=== PATIENT | male | born 1970 | race Caucasian/White ===

== ENCOUNTER 2019-03-31 07:12 | Outpatient (CLI) | payer BC, SELFPAY ==
[2019-03-31 07:36] LABS: Basophils Absolute Auto 0.1 K/mm3 (0.0-0.1); Basophils Percent Auto 1.3 % (0.2-1.2); Eosinophils Absolute Auto 0.2 K/mm3 (0-0.3); Eosinophils Percent Auto 2.2 % (0-4.4); Hematocrit 46.7 % (42.0-52.0); Hemoglobin 15.6 g/dL (14.0-18.0); Immature Granulocyte Absolute 0.34 K/mm3 (0.00-0.031); Immature Granulocyte Percent A 3.7 % (0-0.5); Lymphocytes Absolute Auto 2.48 K/mm3 (0.9-3.2); Lymphocytes Percent Auto 27.3 % (18.3-44.2); Mean Corpuscular HGB Conc 33.4 g/dl (32-36); Mean Corpuscular Hemoglobin 29.9 pg (26-34); Mean Corpuscular Volume 89.5 fl (80-100); Mean Platelet Volume 10.3 fl (7.4-10.4); Monocytes Absolute Auto 0.8 K/mm3 (0.1-0.6); Monocytes Percent Auto 8.7 % (2.6-8.5); Neutrophils Absolute Auto 5.2 K/mm3 (1.3-6.7); Neutrophils Percent Auto 56.8 % (45.5-73.1); Platelet Count Result 259 k/mm3 (150-375); Red Blood Count 5.22 M/mm3 (4.6-6.20); Red Cell Distribution Width 12.3 % (11.5-14.5); White Blood Count 9.1 K/mm3 (4.5-10.0)
[2019-03-31 08:56] LABS: LDL Cholesterol Direct 60 mg/dL
[2019-03-31 09:27] LABS: Creatinine Urine 81.2 mg/dL
[2019-03-31 10:00] LABS: MALB Creatinine Ratio 459.4 mg/g (0-30)
[2019-03-31 10:25] LABS: Hemoglobin A1C 8.7 % (<5.7)
[2019-03-31 10:42] LABS: Alanine Aminotransferase 40 U/L (4-50); Alkaline Phosphatase 104 U/L (38-126); Aspartate Amino Transferase 39 U/L (17-59); Bilirubin,Total 0.3 mg/dL (0.2-1.3); Blood Urea Nitrogen 18 mg/dL (9-20); Calcium 9.1 mg/dL (8.4-10.2); Carbon Dioxide 25 mmol/L (22-30); Chloride 101 mmol/L (98-107); Cholesterol 147 mg/dL (0-200); Estimated Glomerular Filt Rate > 60; Glucose 172 mg/dL (75-110); Potassium 4.7 mmol/L (3.4-5.0); Sodium 139 mmol/L (137-145)
[2019-03-31 11:17] LABS: Triglycerides 620 mg/dL (<150)
[2019-04-04 12:30] LABS: Testosterone Free 58.6 pg/mL (35.0-155.0); Testosterone Total 175 ng/dL (250-1100)
== END 2019-03-31 07:13 | disposition home or self-care (01) ==
PROVIDERS: PCP Family Medicine; Visit Provider Family Medicine
DX: Z00.00 Encounter for general adult medical examination without abnormal findings (principal); I10 Essential (primary) hypertension; E11.9 Type 2 diabetes mellitus without complications; E78.5 Hyperlipidemia, unspecified; R68.82 Decreased libido; G25.81 Restless legs syndrome; Z79.899 Other long term (current) drug therapy
CPT/HCPCS: 36415; 80053; 80061; 82043; 82607; 83036; 84402; 84403; 84443; 85025

== ENCOUNTER 2019-09-05 14:46 | Outpatient (CLI) | payer BC, SELFPAY ==
--- NOTE | 2019-09-05 15:01 | ECHO_ITS ---
Patient Info Name: Jaziel Guzman Age: 49 years : 1970 Gender: Male Ht: 73 in Wt: 257 lbs BSA: 2.49 m2 HR: 78 bpm BP: 135 / 76 mmHg Heart Rhythm: Sinus Rhythm Technical Quality: Good Exam Date: 09/05/2019 3:34 PM Exam Location: [facility] Patient Status: Outpatient Admit Date: 09/05/2019 Staff Ordering Physician: Riley Silveira MD Batch Dumper: Saad Rivera RDCS Attending Provider: Riley Sliveira MD Exam Type: CA echo doppler color flow Study Info Indications R00.2 - Palpitations Complete two-dimensional, color flow and Doppler transthoracic echocardiogram is performed. History/Risk Factors Palpitations, tachycardia. Summary 1. Left ventricular chamber dimension is normal. 2. Left ventricular systolic function is normal, estimated at 60-65%. 3. The left ventricular diastolic function is grade I diastolic dysfunction. 4. E/e' 7 is not elevated. Left Ventricle E/e' 7 is not elevated. Left ventricular chamber dimension is normal. Left ventricular systolic function is normal, estimated at 60-65%. The left ventricular diastolic function is grade I diastolic dysfunction. Right Ventricle Right ventricular chamber dimension is normal. Right ventricular systolic function is normal. Left Atria Left atrial chamber dimension is normal. Right Atria Right atrial chamber dimension is normal. Aortic Valve The aortic valve is trileaflet. There is no aortic valve stenosis. There is no aortic valve regurgitation. Pulmonic Valve There is no pulmonic regurgitation. Mitral Valve There is no mitral valve stenosis. There is no mitral valve regurgitation. Tricuspid Valve There is no tricuspid valve regurgitation. Pericardium/Pleural There is no pericardial effusion. Inferior Vena Cava Normal inferior vena cava with >50% collapse upon inspiration consistent with normal right atrial pressure, 5 mmHg. Aorta The aortic root size at the sinus of Valsalva is normal. Left Ventricular Outflow Tract Name Value Normal LVOT 2D LVOT Diameter 2.0 cm LVOT Doppler LVOT Peak Gradient 7 mmHg LVOT Mean Gradient 4 mmHg LVOT VTI 24 cm LVOT VTI/AV VTI Ratio 0.8 LVOT Stroke Volume 75 ml LVOT CO 5.8 l/min LVOT CI 2.3 l/min/m2 Mitral Valve Name Value Normal MV Doppler MV Decel Steele 284 cm/s2 MV PHT 62 ms MV Area (PHT) 3.5 cm2 4.0-5.0 MV Diastolic Function MV E Peak Velocity 61 cm/s MV A Peak Velocity
--- NOTE | 2019-09-11 17:42 | WPDHOLTEREM ---
Holter/Event Monitor Holter/Event Monitor Date of procedure: 09/11/19 Procedure Type: 48 hour Holter monitor Diagnosis: tachycardia, arrhythmia Indications: tachycardia, arrhythmia Image/Tracing Quality: good Finding: This is a 48 hour Holter monitor in which the underlying rhythm was predominantly sinus rhythm with an average heart rate 94 beats per minute minimum of 56 beats per minute occurring at 1:07 a.m. and a maximum 245 beats per minute occurring at 8:09 p.m. Maximum heart rate was associated with atrial fibrillation with very rapid ventricular response and transient aberrant conduction. Total burden of atrial fibrillation was 19.7% with frequent intermittent episodes totaling 356 minutes. review patient's symptom diary indicates complaints of palpitations at 7:55 p.m. and 8:22 p.m. SA she had with atrial fibrillation with rapid ventricular response. Occasional PVCs and aberrant conduction is noted totaling approximately 800. Atrial flutter was not observed. There were no prolonged pauses and or high-grade AV blocks identified. Nonspecific IVCD was noted periodically throughout this with preserved MS interval. Conclusion: Predominant SR with paroxysmal atrial fibrillation with very rapid ventricular response at times >200bpm. 19.7% Atrial fibrillation burden. Clinical correlation advised. Symptoms of palpitations corresponded to atrial fibrillation w/ RVR with longest episode approximately 1 hour with information provided.
== END 2019-09-05 14:47 | disposition home or self-care (01) ==
PROVIDERS: PCP Family Medicine; Visit Provider Family Medicine
DX: R00.2 Palpitations (principal); R01.1 Cardiac murmur, unspecified
CPT/HCPCS: 93225; 93226; 93306

== ENCOUNTER 2019-10-30 00:46 | Outpatient (CLI) | payer BC, SELFPAY ==
[2019-10-30 16:39] LABS: SARS-CoV-2 RNA PCR Negative
== END 2019-10-30 00:47 | disposition home or self-care (01) ==
LOC: ANHCOVIDDT 00:46
PROVIDERS: PCP Family Medicine; Visit Provider Internal Medicine Critical Care Medicine
DX: Z20.828 Contact with and (suspected) exposure to other viral communicable diseases (principal)
CPT/HCPCS: 87635; C9803; U0003

== ENCOUNTER 2019-11-01 12:52 | Outpatient (CLI) | payer BC, SELFPAY ==
--- NOTE | 2019-11-17 21:26 | WPDSLEEPSTUD ---
Sleep Study Date of Study: 11/01/19 Ordering Provider: Honorio Barnes DO Interpreting Physician: Marcia Ross MD Sleep Study Type: Split Polysomnogram Height: 1.85 m Weight: 117.934 kg Body Mass Index: 34.2 [place]: 15 Reason for Sleep Study hypersomnolence Sleep History Jaziel Guzman is a 49-year-old male 73 in tall weighing 260 lb with a body mass index of 34.3. Dr. Barnes referred him for Medical comorbidities including paroxysmal atrial fibrillation. The patient has a positive family history with his father having sleep apnea. The patient constantly snores and is constantly loud enough that others complain about it. He occasionally awakens at night with heartburn, belching or coughing. He rarely awakens from sleep feeling short of breath. He rarely has trouble sleeping with a cold, rarely gasps for breath at night. He occasionally has breathing problems at night reported to him by others. He frequently sweats excessively at night and constantly notices his heart pounding or beating irregularly during the nighttime. He rarely falls asleep during the day, rarely falls asleep involuntarily or while driving. He rarely falls asleep during physical effort. He does not have loss of muscle tone with strong emotion. 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 He does not feel paralyzed on waking or falling asleep. He rarely has vivid dreamlike scenes upon awakening or falling asleep. He has never free to go to sleep. He rarely has nightmares. He rarely remembers his dreams. He frequently has racing thoughts. He does not have feelings of sadness or depression although occasionally he has anxiety. He rarely has muscular tension. He constantly notices parts of his body jerking and constantly kicks at night. He frequently has crawling and aching feelings in his legs at night. He frequently has leg pain at night. He denies morning jaw pain as well as grinding his teeth during sleep. He rarely is bothered by pain during the day, rarely is awakened by pain at night, occasionally wakes up feeling stiff in the morning with sore achy muscles but rarely with pain in the neck and spine. He has dizziness and fatigue. He takes and acids regularly. Normal bedtime is between 10 and 11:00 p.m. falling asleep within 5 minutes waking several times at night to go urinate then he returns to bed. On average he stays awake 10 minutes when he wakes at night. He awakens in the morning by 5:00 a.m.. On the weekends bedtime is the same but he sleeps until 6-7 a.m.. He does not take naps. A short nap is not refreshing. He is usually drowsy in the morning for 3 hours or longer. He feels better in the morning than other times a day. He estimates that he gets 5-6 hours of sleep at night. Habits: tobacco 30 pack years, quit this year; drinks one pot of coffee per day; social alcohol use. [facility] Family History Family History Other Diabetes mellitus Other No pertinent family history Social History Social History Social History: Patient stopped smoking 02/2019 Smoking packs per day: 1.5 Smoking cigarettes per day: 30.0 Smoking status: Former smoker Tobacco type: cigarettes Second hand tobacco smoke exposure: Yes Smoking end date: 02/15/19 Alcohol intake: current Drinks per week: 1 Substance use: current Substance use type: does not use Medications icosapent ethyl 1 gram capsule 2 gm PO BID fenofibrate micronized 200 mg capsule See Rx Instructions dapagliflozin 10 mg tablet 10 mg PO DAILY gabapentin 300 mg capsule 300 mg PO TID metformin 500 mg tablet,extended release 24 hr See Rx Instructions glipizide 10 mg tablet, extended release 24 hr 20 mg PO DAILY metoprolol succinate 25 mg tablet,extended release 24 hr 25 mg PO DAILY apixaban 5 mg tablet 5 mg PO BID flecainid
[2019-11-18 00:02] VITALS: BMI 34.2
== END 2019-11-01 12:53 | disposition home or self-care (01) ==
LOC: ANHCSM 12:52
PROVIDERS: PCP Family Medicine; Visit Provider Internal Medicine Cardiovascular Disease
DX: G47.10 Hypersomnia, unspecified (principal)
CPT/HCPCS: 95811

== ENCOUNTER 2020-02-15 07:22 | Outpatient (CLI) | payer BC, SELFPAY ==
[2020-02-15 08:10] LABS: Basophils Absolute Auto 0.1 K/mm3 (0.0-0.1); Basophils Percent Auto 0.8 % (0.2-1.2); Eosinophils Absolute Auto 0.1 K/mm3 (0-0.3); Eosinophils Percent Auto 1.3 % (0-4.4); Hematocrit 51.3 % (42.0-52.0); Hemoglobin 17.1 g/dL (14.0-18.0); Immature Granulocyte Absolute 0.15 K/mm3 (0.00-0.031); Immature Granulocyte Percent A 1.6 % (0-0.5); Lymphocytes Absolute Auto 2.52 K/mm3 (0.9-3.2); Lymphocytes Percent Auto 26.6 % (18.3-44.2); Mean Corpuscular HGB Conc 33.3 g/dl (32-36); Mean Corpuscular Hemoglobin 30.2 pg (26-34); Mean Corpuscular Volume 90.6 fl (80-100); Mean Platelet Volume 10.2 fl (7.4-10.4); Monocytes Absolute Auto 0.7 K/mm3 (0.1-0.6); Monocytes Percent Auto 7.7 % (2.6-8.5); Neutrophils Absolute Auto 5.9 K/mm3 (1.3-6.7); Platelet Count Result 265 k/mm3 (150-375); Red Blood Count 5.66 M/mm3 (4.6-6.20); Red Cell Distribution Width 13.8 % (11.5-14.5); White Blood Count 9.5 K/mm3 (4.5-10.0)
[2020-02-15 08:21] LABS: Hemoglobin A1C 7.6 % (<5.7)
[2020-02-15 08:32] LABS: Alanine Aminotransferase 30 U/L (4-50); Albumin Level 4.2 g/dL (3.5-5.1); Alkaline Phosphatase 54 U/L (38-126); Anion Gap 8 mmol/L (8-16); Aspartate Amino Transferase 28 U/L (17-59); Bilirubin,Total 0.5 mg/dL (0.2-1.3); Blood Urea Nitrogen 20 mg/dL (9-20); Calcium 9.1 mg/dL (8.4-10.2); Carbon Dioxide 28 mmol/L (22-30); Chloride 101 mmol/L (98-107); Cholesterol 155 mg/dL (0-200); Estimated Glomerular Filt Rate > 60; Glucose 129 mg/dL (75-110); HDL Direct 30 mg/dL; Potassium 4.2 mmol/L (3.4-5.0); Sodium 137 mmol/L (137-145); Triglycerides 407 mg/dL (<150)
[2020-02-15 08:42] LABS: Creatinine Urine 80.5 mg/dL
[2020-02-15 08:45] LABS: LDL Cholesterol Direct 84 mg/dL
[2020-02-15 08:47] LABS: MALB Creatinine Ratio 203.5 mg/g (0-30); Microalbumin Urine Random 163.8 mg/L (0-16.7)
[2020-02-15 09:17] LABS: Vitamin D 25 Hydroxy 26.3 ng/mL
== END 2020-02-15 07:23 | disposition home or self-care (01) ==
LOC: ANHLAB 07:24
PROVIDERS: PCP Family Medicine; Visit Provider Nurse Practitioner
DX: E11.9 Type 2 diabetes mellitus without complications (principal); E78.5 Hyperlipidemia, unspecified; E55.9 Vitamin D deficiency, unspecified
CPT/HCPCS: 36415; 80053; 80061; 82043; 82306; 83036; 85025

== ENCOUNTER 2021-02-10 16:25 | Observation (INO) | payer BC, OTHER, SELFPAY ==
[2021-02-10] VITALS (9 sets, daily range): BP systolic 121–144; BP diastolic 54–91; PULSE 63–147; RESP 19–22; O2SAT 96; BMI 32.8
--- NOTE | ~2021-02-10 | CT_ITS ---
EXAMINATION: CTA chest PE protocol DATE: 02/10/2021 19:30 INDICATION: Tachycardia TECHNIQUE: Computed tomography angiography (CTA) of the chest was performed with 100 mL Omnipaque-350 intravenous contrast timed to evaluate the pulmonary arteries. Coronal maximum intensity projection 3D-reconstructions were created by the technologist. Automated exposure control and iterative reconst ruction technique were employed. Exam dose: 764.67 mGy-cm total exam DLP. COMPARISON: 02/10/2021 2 view chest 03/08/2019 CT chest 01/18/2017 CT abdomen pelvis FINDINGS: There is diagnostic contrast enhancement of the pulmonary arteries and no evidence of pulmo nary embolism. Stable subcentimeter lingular mass since 03/08/2019 and 01/2017, consistent with benign process. Lungs are clear of infiltrate or consolidation. No interval pulmonary mass lesion. No thoracic aortic aneurysm. Normal heart size. No pericardial or pleural effusion. No hilar or media stinal mass lesion or lymphadenopathy. Small sliding hiatal hernia. IMPRESSION: No evidence of pulmonary embolism Reviewed, dictated and finalized at [facility]. Reviewed, dictated and finalized at location A. L MAKER
--- NOTE | ~2021-02-10 | XR_ITS ---
XR chest 2V DATE: 02/10/2021 17:16 INDICATION: Tachycardia TECHNIQUE: PA and lateral views COMPARISON: 03/08/2019 CT chest 02/02/2019 PA and lateral chest FINDINGS: Normal heart size. No pulmonary infiltrate or consolidation, pleural effusion or pulmonary vascular congestion or pneumothorax is detected. IMPRESSION: No active cardiopulmonary disease Reviewed, dictated and finalized at location A. EWATER MANAGER
--- NOTE | 2021-02-10 16:28 | ECG_ITS ---
Measurements Intervals [place] Rate: 147 P: IN: 0 QRS: -52 QRSD: 157 T: -87 QT: 322 QTc: 504 Interpretive Statements ATRIAL FLUTTER WITH RAPID VENTRICULAR RESPONSE LEFT AXIS DEVIATION DELAYED PRECORDIAL R/S TRANSITION BORDERLINE T WAVE ABNORMALITY- LAT/HIGH LAT LEADS ABNORMAL ECG Electronically Signed On 02-10-2021 17:02:05 SLABBING MACHINE OPERATOR by Honorio Barnes D.O.
--- NOTE | 2021-02-10 16:56 | ED.GENADULT ---
HPI - General Adult General Chief complaint: Arrhythmia/Palpitations Stated complaint: Abnormal EKG Time Seen by Provider: 02/10/21 16:40 Source: patient Mode of arrival: ambulatory Limitations: no limitations History of Present Illness HPI narrative: This is a 50-year-old male with a history of hypertension, hyperlipidemia, diabetes, atrial fibrillation who presents with reports of rapid heart rate. He indicates that over the last few weeks he has felt his heart beating fast. He states that this occurs multiple times a day and can last from anywhere between 3 minutes to 1 hour per episode. He has associated shortness of breath, chest heaviness, dizziness, lightheadedness. He has experienced a productive cough but attributes this to smoking. He smokes 1 pack/day. He denies any fever, chills, nausea, vomiting, sore throat, diarrhea. He is compliant with his metoprolol for rate control and Eliquis. His BS have been variable. He states BS have run between 160-360's as of late. He has Ozempic ordered but states that he has been unable to fill the medication due to cost. He is compliant with Metformin and Jardiance. He went to see his primary care provider today. He had an elevated heart rate in the office was direct to come here for further evaluation. He did have COVID back in November 2019 but did not have his COVID vaccinations performed. He has experienced fatigue as of late, which is bothersome at the present time. He has underlying obstructive sleep apnea but has not been using his CPAP over the last [address] days[address] Principal Scientist [address] Dr. Barnes. Echo from August 2019 showed ejection fraction of 60 to 65% with grade 1 diastolic dysfunction. 48-hour Holter monitor from August 2019 showed predominant rhythm of sinus rhythm, rate between 56 to 245 bpm with an atrial fibrillation burden of 19.7% and 800 PVCs. Carotid duplex from February 2019 was normal. Related Data Home Medications Medication Instructions Recorded Confirmed gabapentin 300 mg capsule 300 mg PO TID cap 06/21/19 02/10/21 apixaban 5 mg tablet 5 mg PO BID 08/28/20 02/10/21 Allergies Allergy/AdvReac Type Severity Reaction Status Date / Time No Known Allergies Allergy Verified 02/10/21 16:56 Review of Systems Review of Systems: CONSTITUTIONAL: Reports fatigue. Denies fever, chills, or sweats. EYES: Denies visual changes, redness, or discharge. ENT: Denies rhinorrhea, congestion, sore throat, or otalgia. CARDIOVASCULAR: Reports chest heaviness and palpitations. Denies edema. RESPIRATORY: Reports productive cough and shortness of breath GASTROINTESTINAL: Denies abdominal pain, nausea, vomiting, or diarrhea. GENITOURINARY: Denies dysuria or hematuria. SKIN: Denies rash or itching. MUSCULOSKELETAL: Denies back pain, joint pain, or myalgia. NEUROLOGIC: Denies headache, numbness, dizziness, or weakness. PSYCHIATRIC: Denies anxiety or depression. [facility] Past Medical History Medical History Cluster headache Essential (primary) hypertension GERD (gastroesophageal reflux disease) Hyperlipidemia Nose fracture PAF (paroxysmal atrial fibrillation) RLS (restless legs syndrome) Type 2 diabetes mellitus without complication, without long-term current use of insulin Surgical History Surgical History History of appendectomy History of inguinal hernia repair History of shoulder surgery Right Family History Family History Other Diabetes mellitus Other No pertinent family history Social History Social History Smoking packs per day: 1.5 Smoking cigarettes per day: 30.0 Smoking status: Current every day smoker Tobacco type: cigarettes Second hand tobacco smoke exposure: Yes Smoking end date: 02/15/19 Alcohol intake:
[2021-02-10] MEDS: dilTIAZem HCl INJ 25 MG/5 ML VIAL 10 MG IV PUSH ×2 (17:03→17:39)
[2021-02-10 17:05] LABS: Basophils Absolute Auto 0.1 K/mm3 (0.0-0.1); Basophils Percent Auto 0.9 % (0.2-1.2); Eosinophils Absolute Auto 0.2 K/mm3 (0-0.3); Eosinophils Percent Auto 1.6 % (0-4.4); Hematocrit 47.6 % (42.0-52.0); Hemoglobin 16.8 g/dL (14.0-18.0); Immature Granulocyte Percent A 1.8 % (0-0.5); Lymphocytes Absolute Auto 4.05 K/mm3 (0.9-3.2); Lymphocytes Percent Auto 36.2 % (18.3-44.2); Mean Corpuscular HGB Conc 35.3 g/dl (32-36); Mean Corpuscular Hemoglobin 31.6 pg (26-34); Mean Corpuscular Volume 89.5 fl (80-100); Mean Platelet Volume 10.5 fl (7.4-10.4); Monocytes Absolute Auto 0.9 K/mm3 (0.1-0.6); Monocytes Percent Auto 7.9 % (2.6-8.5); Neutrophils Absolute Auto 5.8 K/mm3 (1.3-6.7); Neutrophils Percent Auto 51.6 % (45.5-73.1); Platelet Count Result 251 k/mm3 (150-375); Red Blood Count 5.32 M/mm3 (4.6-6.20); Red Cell Distribution Width 13.2 % (11.5-14.5); White Blood Count 11.2 K/mm3 (4.5-10.0)
[2021-02-10 17:16] LABS: Lactic Acid Reflex 1.7 mmol/L (0.7-2.1)
[2021-02-10] MEDS: dilTIAZem 100 MG/100 ML 100 MG/100 ML BAG IV CONT ×2 (19:02→23:02)
[2021-02-10 19:12] LABS: Alanine Aminotransferase 30 U/L (4-50); Albumin Level 4.1 g/dL (3.5-5.1); Alkaline Phosphatase 134 U/L (38-126); Anion Gap 9 mmol/L (8-16); Aspartate Amino Transferase 30 U/L (17-59); Bilirubin,Total 0.4 mg/dL (0.2-1.3); Blood Urea Nitrogen 21 mg/dL (9-20); Carbon Dioxide 23 mmol/L (22-30); Chloride 105 mmol/L (98-107); Estimated CRCL calculation 87 ml/min; Estimated Glomerular Filt Rate > 60; Glucose 150 mg/dL (65-110); Potassium 4.1 mmol/L (3.4-5.0); Sodium 137 mmol/L (137-145)
[2021-02-10 19:25] LABS: NT Pro B Type Natriuretic Pept 89 pg/mL (5-100); Troponin I < 0.012 ng/mL (0.000-0.034)
--- NOTE | 2021-02-10 19:58 | PM.IMHP ---
H&P: HPI History of Present Illness Date/Time: 02/10/21 19:58 Chief Complaint: Palpitations Narrative: This is a 50-year-old male with past medical history significant for paroxysmal atrial fibrillation, former smoker 30 pack year quit 3 months ago, obstructive sleep apnea, restless leg syndrome, type 2 diabetes mellitus, dyslipidemia, hypertension, gastroesophageal reflux disease. Patient presented to emergency room due to palpitations for the last 2 weeks or so states that had progressively he has been getting very tired ,have been having dizziness and lightheadedness, no chest pain ,no shortness of breath, no leg swelling, no syncope or near syncope, no nausea, no vomiting, no abdominal pain, no claudication, no cough, no sputum production, no fevers, no rigors ,no chills. In emergency room patient was found to have atrial fibrillation with rapid ventricular response. 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 Prior to this patient has been his usual state of health patient has been started on diltiazem drip. Preliminary workup was basically unrevealing a CT angio of the chest did not show acute pulmonary embolism. A chest x-ray was clear. Patient has been placed in observation for further evaluation, management and treatment. Review of Systems Review of Systems: Palpitations, fatigue, decreased stamina, shortness of breath, lightheadedness. Constitutional: Constitutional: Denies chills, Denies excessive sweating, Reports fatigue, Denies fever(s), Reports lethargy, Denies malaise, Denies night sweats and Denies weakness Eyes: Eyes: Denies change in vision ENT: Denies dysphagia, Denies vertigo, Denies nasal congestion, Denies nasal discharge, Denies nasal obstruction and Denies odynophagia Cardiovascular: Cardiovascular: Denies syncope, Reports rapid heart rate, Denies pedal edema, Reports irregular heart rhythm, Denies leg edema, Denies radiating jaw, neck or arm pain, Reports palpitations, Reports dyspnea, Denies orthopnea and Denies paroxysmal nocturnal dyspnea Respiratory: Respiratory: Denies cough, Denies excessive phlegm production and Denies wheezing Gastrointestinal: Gastrointestinal: Denies abdominal pain, Denies dyspepsia, Denies heartburn, Denies diarrhea, Denies nausea and Denies vomiting Genitourinary: Genitourinary: Denies dysuria and Denies flank pain Musculoskeletal: Musculoskeletal: Denies back pain, Denies arthralgias, Denies joint swelling, Denies muscle cramps and Denies muscle weakness Integumentary/Breasts: Skin/Breast: Denies rash Neurologic: Reports dizziness, Denies focal weakness and Denies Sensory deficit (Neuro) Psychiatric: Psychiatric: Reports no additional psychiatric complaints and Reports as per HPI Endocrine: Endocrine: Denies change in body appearance, Denies excessive sweating, Denies flushing, Denies heat intolerance, Denies polyphagia, Denies polydipsia and Denies polyuria Hematologic/Lymphatic: Hematologic/Lymphatic: Reports no additional hematologic/lymphatic complaints and Reports easy bleeding Allergic/Immunologic: Allergic/Immunologic: Reports no additional allergic/immunologic complaints and Reports as per HPI PMFSH Past Medical History Medical History Cluster headache Essential (primary) hypertension GERD (gastroesophageal reflux disease) Hyperlipidemia Nose fracture PAF (paroxysmal atrial fibrillation) RLS (restless legs syndrome) Type 2 diabetes mellitus without complication, without long-term current use of insulin Surgical History Surgical History History of appendectomy History of inguinal hernia repair History of shoulder surgery Right Family History Family History Other Diabetes mellitus Other No pertinent fami
--- NOTE | 2021-02-10 20:00 | PC.NURSE ---
Per SU[employer]TRACTS MANAGER Theresa diltiazem drip titrated to 7.5mL
--- NOTE | 2021-02-10 20:38 | ECG_ITS ---
Measurements Intervals [place] Rate: 57 P: 25 HI: 123 QRS: -30 QRSD: 100 T: -29 QT: 420 QTc: 409 Interpretive Statements SINUS BRADYCARDIA LEFT ATRIAL ENLARGEMENT T WAVE ABNORMALITY IN INFERIOR LEADS- CONSIDER ISCHEMIA BASELINE ARTIFACT- II, V1, V3-V6 ABNORMAL ECG Electronically Signed On 02-11-2021 9:53:07 LOG GRADER by Honorio Barnes D.O.
--- NOTE | 2021-02-10 20:41 | PC.NURSE ---
TORRESB from Dr. Patterson to stop diltiazem drip because pt is sinus murphy at this time.
[2021-02-10 21:35] LABS: Troponin I < 0.012 ng/mL (0.000-0.034)
[2021-02-10] MEDS: METOPROLOL SUCCINATE EXT REL 50 MG TABCR PO (23:02)
--- NOTE | 2021-02-10 23:20 | ADMGEN ---
This patient, Jaziel Guzman, was admitted to [facility] Bed Second Floor-3. Patient/family oriented to hospital policies and general routines including ID bracelet, bed and alarms, visiting hours, pain management, procedures, bathroom and other care routines, personal items, smoking policy, room service/diet, and visiting hours. Information on how to activate the Rapid Response Team has been discussed. Patient/Family are encouraged to report perceived risks to care and to ask questions if they do not understand what they are told or what they should do.
[2021-02-11] VITALS (10 sets, daily range): BP systolic 93–126; BP diastolic 47–70; PULSE 55–124; RESP 14–19; O2SAT 92–99
--- NOTE | 2021-02-11 | ECHO_ITS ---
Patient Info Name: Jaziel Guzman Age: 50 years : 1970 Gender: Male Ht: 73 in Wt: 250 lbs BSA: 2.45 m2 HR: 83 bpm BP: 121 / 63 mmHg Heart Rhythm: Atrial Fibrillation Exam Date: 02/11/2021 8:41 AM Exam Location: [facility] Patient Status: Outpatient Admit Date: 02/10/2021 Staff Ordering Physician: Jordyn Patterson MD Construction Ironworker Helper: Dontae Ferguson, FELISA, RT Attending Provider: Celso Long MD Referring Physician: Yesenia BAEZ; Exam Type: CA echo doppler color flow Study Info Indications I48.1 - Persistent atrial fibrillation Complete two-dimensional, color flow and Doppler transthoracic echocardiogram is performed. Summary 1. Complete two-dimensional, color flow and Doppler transthoracic echocardiogram is performed. 2. Left ventricular chamber dimension is normal. 3. Left ventricular systolic function is normal, estimated at 55-60%. 4. There is mildly increased left ventricular wall thickness. 5. The left ventricular diastolic function is indeterminate. 6. Left atrial chamber dimension is mildly enlarged. 7. There is mild mitral valve regurgitation. 8. There is mild tricuspid valve regurgitation. Left Ventricle Left ventricular chamber dimension is normal. Left ventricular systolic function is normal, estimated at 55-60%. There is mildly increased left ventricular wall thickness. The left ventricular diastolic function is indeterminate. Right Ventricle Right ventricular chamber dimension is normal. Right ventricular systolic function is normal. Left Atria Left atrial chamber dimension is mildly enlarged. Right Atria Right atrial chamber dimension is normal. Atrial Septum Intact interatrial septum visualized by color flow imaging. Aortic Valve The aortic valve is trileaflet. There is no aortic valve sclerosis. There is no aortic valve stenosis. There is trace aortic valve regurgitation. Pulmonic Valve The pulmonic valve is normal. There is no pulmonic valve stenosis. There is trace pulmonic regurgitation. Mitral Valve The mitral valve has normal leaflets. There is no mitral valve stenosis. There is mild mitral valve regurgitation. Tricuspid Valve The tricuspid valve leaflets are normal. There is no significant tricuspid valve stenosis. There is mild tricuspid valve regurgitation. No pulmonary hypertension, estimated pulmonary arterial systolic pressure is 33 mmHg. Pericardium/Pleural The pericardium appears normal. There is no pericardial effusion. Inferior Vena Cava Normal inferior vena cava with >50% collapse upon inspiration consistent with normal right atrial pressure, 5 mmHg. Aorta The aortic root size at the sinus of Valsalva is normal. Left Ventricular Outflow Tract Name Value Normal LVOT 2D LVOT Diameter 2.0 cm LVOT Doppler LVOT Peak Gradient 3 mmHg LVOT Mean Gradient 2 mmHg LVOT VTI 20 cm LVOT VTI/AV VTI Ratio 0.7 LVOT Stroke Volume 61 ml LVOT CO
[2021-02-11] MEDS: GABAPENTIN 300 MG CAPSULE PO (00:27)
[2021-02-11] MEDS: GABAPENTIN 300 MG CAPSULE 900 MG PO (01:29)
[2021-02-11 06:01] LABS: Basophils Absolute Auto 0.2 K/mm3 (0.0-0.1); Basophils Percent Auto 1.2 % (0.2-1.2); Eosinophils Absolute Auto 0.1 K/mm3 (0-0.3); Eosinophils Percent Auto 1.1 % (0-4.4); Hematocrit 53.9 % (42.0-52.0); Hemoglobin 18.3 g/dL (14.0-18.0); Immature Granulocyte Absolute 0.28 K/mm3 (0.00-0.031); Immature Granulocyte Percent A 2.1 % (0-0.5); Lymphocytes Absolute Auto 3.52 K/mm3 (0.9-3.2); Lymphocytes Percent Auto 26.4 % (18.3-44.2); Mean Corpuscular Hemoglobin 30.3 pg (26-34); Mean Corpuscular Volume 89.4 fl (80-100); Mean Platelet Volume 10.8 fl (7.4-10.4); Monocytes Absolute Auto 1.2 K/mm3 (0.1-0.6); Monocytes Percent Auto 8.7 % (2.6-8.5); Neutrophils Absolute Auto 8.1 K/mm3 (1.3-6.7); Neutrophils Percent Auto 60.5 % (45.5-73.1); Platelet Count Result 290 k/mm3 (150-375); Red Blood Count 6.03 M/mm3 (4.6-6.20); White Blood Count 13.3 K/mm3 (4.5-10.0)
[2021-02-11 06:09] LABS: Alanine Aminotransferase 33 U/L (4-50); Albumin Level 4.4 g/dL (3.5-5.1); Alkaline Phosphatase 97 U/L (38-126); Anion Gap 7 mmol/L (8-16); Aspartate Amino Transferase 32 U/L (17-59); Bilirubin,Total 0.5 mg/dL (0.2-1.3); Blood Urea Nitrogen 19 mg/dL (9-20); Calcium 9.3 mg/dL (8.4-10.2); Carbon Dioxide 21 mmol/L (22-30); Chloride 106 mmol/L (98-107); Estimated CRCL calculation 94 ml/min; Estimated Glomerular Filt Rate > 60; Glucose 192 mg/dL (65-110); Potassium 4.6 mmol/L (3.4-5.0); Sodium 134 mmol/L (137-145)
--- NOTE | 2021-02-11 07:20 | PC.NURSE ---
pt resting quietly. a flutter on monitor. continue waiting bed placement.
[2021-02-11] MEDS: hydroCHLOROthiazide 12.5 MG CAPSULE PO (08:49)
[2021-02-11] MEDS: APIXABAN 5 MG TABLET PO (08:49)
[2021-02-11] MEDS: FLECAINIDE ACETATE 100 MG TABLET PO (08:49)
[2021-02-11] MEDS: LOSARTAN POTASSIUM 50 MG TABLET PO (08:50)
[2021-02-11] MEDS: dilTIAZem 100 MG/100 ML 100 MG/100 ML BAG IV CONT (13:41)
--- NOTE | 2021-02-11 15:47 | PM.IMPN ---
Progress Note: A&P Assessment and Plan (1) Atrial fibrillation with rapid ventricular response: Code(s): I48.91 - Unspecified atrial fibrillation Status: Acute Assessment and Plan: Patient presented with atrial fibrillation with rapid ventricular rate. He Is currently on diltiazem drip Home meds have been restarted Continuous telemetry Continuous pulse ox EKG reviewed Echocardiogram in a.m. last echocardiogram was done on 09/04 Cardiology consulted. He has been on flecainide and metoprolol at home which will be resumed. He does report recurrence of his AFib with RVR symptoms since past few months. He has been on flecainide since past 2 years Await Cardiology evaluation and recommendation. Admit to telemetry unit (2) Dizziness: Code(s): R42 - Dizziness and giddiness Status: Acute Assessment and Plan: Likely secondary to arrhythmia Supportive care (3) Type 2 diabetes mellitus without complication, without long-term current use of insulin: Code(s): E11.9 - Type 2 diabetes mellitus without complications Status: Acute Assessment and Plan: Patient is on oral agents metformin and empagliflozin Currently holding Insulin sliding scale as needed Carb consistent diet (4) PAF (paroxysmal atrial fibrillation): Code(s): I48.0 - Paroxysmal atrial fibrillation Status: Acute Assessment and Plan: Patient is on a combination of flecainide and metoprolol XL. (5) Obstructive sleep apnea: Code(s): G47.33 - Obstructive sleep apnea (adult) (pediatric) Status: Acute Assessment and Plan: Patient concluded a sleep study in the outpatient setting Will do CPAP at nighttime (6) Essential (primary) hypertension: Code(s): I10 - Essential (primary) hypertension Status: Acute Assessment and Plan: Continue home meds Hold for systolic of 90 Continue to monitor (7) GERD without esophagitis: Code(s): K21.9 - Gastro-esophageal reflux disease without esophagitis Status: Acute Assessment and Plan: Continue PPI (8) Dyslipidemia: Code(s): E78.5 - Hyperlipidemia, unspecified Status: Acute Assessment and Plan: Continue statin (9) RLS (restless legs syndrome): Code(s): G25.81 - Restless legs syndrome Status: Acute Assessment and Plan: Patient takes gabapentin CPAP at nighttime Subjective Date/time seen: 02/11/21 15:47 Interval history: HPI:This is a 50-year-old male with past medical history significant for paroxysmal atrial fibrillation, former smoker 30 pack year quit 3 months ago, obstructive sleep apnea, restless leg syndrome, type 2 diabetes mellitus, dyslipidemia, hypertension, gastroesophageal reflux disease. Patient presented to emergency room due to palpitations for the last 2 weeks or so states that had progressively he has been getting very tired ,have been having dizziness and lightheadedness, no chest pain ,no shortness of breath, no leg swelling, no syncope or near syncope, no nausea, no vomiting, no abdominal pain, no claudication, no cough, no sputum production, no fevers, no rigors ,no chills. In emergency room patient was found to have atrial fibrillation with rapid ventricular response. 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 Prior to this patient has been his usual state of health patient has been started on diltiazem drip. Preliminary workup was basically unrevealing a CT angio of the chest did not show acute pulmonary embolism. A chest x-ray was clear. Patient has been placed in observation for further evaluation, management and treatment. 02/11/2021: Back to sinus rhythm again. On diltiazem drip cardiology being consulted denies any chest pain shortness of breath no cough or fever Review of Systems Review of Systems: All systems reviewed & are unremarkable except as noted i
--- NOTE | 2021-02-11 15:55 | PM.CNCAR ---
Assessment and Plan Assessment and plan (1) Essential (primary) hypertension: Code(s): I10 - Essential (primary) hypertension Status: Acute Assessment and Plan: At goal (2) PAF (paroxysmal atrial fibrillation): Code(s): I48.0 - Paroxysmal atrial fibrillation Status: Acute Assessment and Plan: In and out of atrial fibrillation/flutter. He is on antiarrhythmic therapy as well as metoprolol. He is going in and out of atrial fibrillation/flutter frequently. Echocardiogram is already ordered and reviewed. At this point, I am going to continue his flecainide and increase his metoprolol succinate up to 50 mg p.o. daily.. I am going to stop his diltiazem drip as he is in a normal rhythm. If he stays in normal rhythm over the next couple hours, I would recommend he go home and follow up with Dr. Barnes next week at his appointment on February 18. I did tell him that in my opinion, given his frequent episodes of atrial fibrillation/flutter which are symptomatic with dizziness, that he is failing current rhythm strategy and should be referred to electrophysiology for consideration of ablation or other antiarrhythmic. I also do not see that he has had a stress test and given his flecainide use, stress testing should be performed if not already done. Will defer to Dr. Barnes however (3) Obstructive sleep apnea: Code(s): G47.33 - Obstructive sleep apnea (adult) (pediatric) Status: Acute Assessment and Plan: Compliant with CPAP (4) Dyslipidemia: Code(s): E78.5 - Hyperlipidemia, unspecified Status: Acute Assessment and Plan: On rosuvastatin (5) Type 2 diabetes mellitus without complication, without long-term current use of insulin: Code(s): E11.9 - Type 2 diabetes mellitus without complications Status: Acute Assessment and Plan: Per PCP (6) Dizziness: Code(s): R42 - Dizziness and giddiness Status: Acute Assessment and Plan: Related to his arrhythmia (7) Atrial flutter: Code(s): I48.92 - Unspecified atrial flutter Status: Acute Assessment and Plan: Paroxysmal atrial flutter. Back in sinus rhythm. Will discontinue his diltiazem drip as above. History of Present Illness History of Present Illness Consult date/time: 02/11/21 15:55 Requesting physician: Jorge Luis Cardenas, [employer], [facility] Consult reason: atrial fibrillation and Other (Atrial flutter) Reason For Visit: atrial fibrillation with RVR Narrative: Date of service 02/11/2021 Reason for consultation, atrial flutter/fibrillation Requesting provider: Jorge Luis Cardenas History patient is a 50-year-old male has history of paroxysmal atrial fibrillation and follows with Dr. Barnes as an outpatient. He is being treated with flecainide told. He is also on Eliquis for anticoagulation. He is a former smoker. He has sleep apnea, restless legs syndrome, hyperlipidemia, hypertension, GERD, diabetes. He presented to the hospital because palpitations. He saw his primary care provider yesterday and was told to come to the emergency department. He has noticed that he has had worsening palpitations especially over the past 2 weeks. Prior to that he would still have palpitations and fluttering it would last for variable amounts of time at least 10 times per week. For the past 2 weeks though he has had almost constant irregular fluttering. He also notices associated shortness of breath and extreme exhaustion and fatigue. He denies any chest pain, syncope. Does have some dizziness and lightheadedness associated with palpitations. No edema, paroxysmal nocturnal dyspnea or orthopnea. He is compliant with medications well as compliant with CPAP treatment. He was found to be in atrial flutter with rapid ventricular response with a heart rate of about 150. He was started on diltiazem drip and he went in and out of atrial fibrillation/flutter overnight. Earlier this morning at about 10:3
--- NOTE | 2021-02-11 17:47 | PC.NURSE ---
pt remains in sinus murphy rate of 59. report called to imu. dr. chambers states pt can be discharged from ed. waiting discharge orders.
--- NOTE | 2021-02-11 17:48 | PM.DS ---
DS: Admitting Diagnosis Discharge Date 02/11/2021 Admitting Diagnosis AFib with RVR DS: Discharge Diagnosis Discharge Diagnosis (1) Atrial fibrillation with rapid ventricular response: Code(s): I48.91 - Unspecified atrial fibrillation Status: Acute Assessment and Plan: Patient presented with atrial fibrillation with rapid ventricular rate. He Is currently on diltiazem drip Home meds have been restarted Continuous telemetry Continuous pulse ox EKG reviewed Last echocardiogram was done on 09/04 repeat echocardiogram with ejection fraction 55-60% with no significant valvular abnormality. Cardiology consulted. He has been on flecainide and metoprolol at home which will be resumed. He does report recurrence of his AFib with RVR symptoms since past few months. He has been on flecainide since past 2 years Cardiology evaluated and diltiazem drip stopped. His metoprolol dose was increased to 50 mg daily was recommended to be continued at the time of discharge. Remained in sinus rhythm even after diltiazem drip is stopped. (2) Dizziness: Code(s): R42 - Dizziness and giddiness Status: Acute Assessment and Plan: Likely secondary to arrhythmia Supportive care (3) Type 2 diabetes mellitus without complication, without long-term current use of insulin: Code(s): E11.9 - Type 2 diabetes mellitus without complications Status: Acute Assessment and Plan: Patient is on oral agents metformin and empagliflozin Currently holding Insulin sliding scale as needed Carb consistent diet (4) PAF (paroxysmal atrial fibrillation): Code(s): I48.0 - Paroxysmal atrial fibrillation Status: Acute Assessment and Plan: Patient is on a combination of flecainide and metoprolol XL. (5) Obstructive sleep apnea: Code(s): G47.33 - Obstructive sleep apnea (adult) (pediatric) Status: Acute Assessment and Plan: Patient concluded a sleep study in the outpatient setting Will do CPAP at nighttime (6) Essential (primary) hypertension: Code(s): I10 - Essential (primary) hypertension Status: Acute Assessment and Plan: Continue home meds Hold for systolic of 90 Continue to monitor (7) GERD without esophagitis: Code(s): K21.9 - Gastro-esophageal reflux disease without esophagitis Status: Acute Assessment and Plan: Continue PPI (8) Dyslipidemia: Code(s): E78.5 - Hyperlipidemia, unspecified Status: Acute Assessment and Plan: Continue statin (9) RLS (restless legs syndrome): Code(s): G25.81 - Restless legs syndrome Status: Acute Assessment and Plan: Patient takes gabapentin CPAP at nighttime DS: Summary Hospital Course Hospital Course: See above Time Spent with Patient Time attestation: Total time spent providing and/or coordinating discharge services: 35 minutes Exam Narrative: GENERAL: The patient is well developed, not in acute distress HEENT: Nonicteric sclerae, PERRLA, EOMI. Oropharynx clear. Moist mucous membranes. Conjunctivae appear well perfused. CHEST: Chest wall is nontender. HEART: Regular rate and rhythm without murmur, rubs, or gallops LUNGS: Clear to auscultation bilaterally. no respiratory distress ABDOMEN: Soft, positive bowel sounds, non-tender, no organomegaly. SKIN: No rash, no excessive bruising, petechiae, or purpura. NEUROLOGIC: Cranial nerves II-XII intact, alert and oriented x 3, no gross motor deficits EXTREMITIES: no edema, cyanosis or clubbing DS: Data Data Completed and Pending Labs on day of discharge: Labs from last 24 hours 02/11/21 02/11/21 02/11/21 16:37 05:23 05:23 WBC 13.3 H RBC 6.03 Hgb 18.3 H Hct 53.9 H MCV 89.4 MCH 30.3 MCHC 34.0 RDW 13.0 Plt Count 290 MPV 10.8 H Immature Gran % (Auto) 2.1 H Neut % (Auto) 60.5 Lymph % (Auto) 26.4 [place] % (Auto) 8.7 H Eos % (Auto) 1.1 Baso % (Auto) 1.2 L
== END 2021-02-12 02:16 | disposition home or self-care (01) ==
LOC: ANHED 18:12 → ANH2MED 20:10 → ANHIMU 02-11 17:46 → ANH2MED 02-17 11:08 → ANHIMU 02-17 11:08
PROVIDERS: Admitting Provider Family Medicine; Emergency Provider Nurse Practitioner; PCP Family Medicine; Visit Provider Internal Medicine
DX: I48.0 Paroxysmal atrial fibrillation (principal); I48.92 Unspecified atrial flutter; R42 Dizziness and giddiness; I10 Essential (primary) hypertension; E78.5 Hyperlipidemia, unspecified; E11.9 Type 2 diabetes mellitus without complications; Z86.16 Personal history of COVID-19; G47.33 Obstructive sleep apnea (adult) (pediatric); K21.9 Gastro-esophageal reflux disease without esophagitis; G25.81 Restless legs syndrome; Z87.891 Personal history of nicotine dependence; Z79.01 Long term (current) use of anticoagulants; Z79.51 Long term (current) use of inhaled steroids; Z79.84 Long term (current) use of oral hypoglycemic drugs
CPT/HCPCS: 36415; 71046; 71275; 80053; 83605; 83880; 84443; 84484; 85025; 93005; 93306; 96365; 96366; 96376; 99285; A9270; G0378; Q9967

== ENCOUNTER 2021-04-05 06:59 | Outpatient (CLI) | payer BC, MEDICAID, SELFPAY ==
[2021-04-05 07:33] LABS: Basophils Absolute Auto 0.1 K/mm3 (0.0-0.1); Basophils Percent Auto 0.9 % (0.2-1.2); Eosinophils Absolute Auto 0.1 K/mm3 (0-0.3); Eosinophils Percent Auto 1.1 % (0-4.4); Hematocrit 49.9 % (42.0-52.0); Immature Granulocyte Absolute 0.12 K/mm3 (0.00-0.031); Immature Granulocyte Percent A 1.2 % (0-0.5); Lymphocytes Percent Auto 22.7 % (18.3-44.2); Mean Corpuscular HGB Conc 34.1 g/dl (32-36); Mean Corpuscular Hemoglobin 31.1 pg (26-34); Mean Corpuscular Volume 91.2 fl (80-100); Mean Platelet Volume 10.7 fl (7.4-10.4); Monocytes Absolute Auto 0.8 K/mm3 (0.1-0.6); Monocytes Percent Auto 8.5 % (2.6-8.5); Neutrophils Absolute Auto 6.3 K/mm3 (1.3-6.7); Neutrophils Percent Auto 65.6 % (45.5-73.1); Platelet Count Result 244 k/mm3 (150-375); Red Blood Count 5.47 M/mm3 (4.6-6.20); Red Cell Distribution Width 12.9 % (11.5-14.5); White Blood Count 9.7 K/mm3 (4.5-10.0)
[2021-04-05 07:44] LABS: Anion Gap 10 mmol/L (8-16); Blood Urea Nitrogen 17 mg/dL (9-20); Calcium 8.8 mg/dL (8.4-10.2); Carbon Dioxide 23 mmol/L (22-30); Chloride 104 mmol/L (98-107); Estimated Glomerular Filt Rate > 60; Glucose 176 mg/dL (65-110); Potassium 4.5 mmol/L (3.4-5.0); Sodium 137 mmol/L (137-145)
== END 2021-04-05 07:00 | disposition home or self-care (01) ==
LOC: ANHLAB 07:04
PROVIDERS: PCP Family Medicine
DX: I48.91 Unspecified atrial fibrillation (principal)
CPT/HCPCS: 36415; 80048; 85025

== ENCOUNTER → 2021-04-10 00:23 | Outpatient (CLI) | payer BC, OTHER, SELFPAY ==
[2021-04-10 11:23] LABS: SARS-CoV-2 RNA PCR Negative
== END ==
PROVIDERS: PCP Family Medicine; Visit Provider Nurse Practitioner
DX: Z01.812 Encounter for preprocedural laboratory examination (principal); Z20.822 Contact with and (suspected) exposure to COVID-19
CPT/HCPCS: C9803; U0003; U0005

== ENCOUNTER 2021-07-26 07:04 | Outpatient (CLI) | payer BC, OTHER, SELFPAY ==
[2021-07-26 07:44] LABS: Basophils Absolute Auto 0.1 K/mm3 (0.0-0.1); Eosinophils Absolute Auto 0.1 K/mm3 (0-0.3); Hematocrit 47.7 % (42.0-52.0); Hemoglobin 16.2 g/dL (14.0-18.0); Immature Granulocyte Absolute 0.14 K/mm3 (0.00-0.031); Lymphocytes Percent Auto 29.8 % (18.3-44.2); Mean Corpuscular Hemoglobin 30.7 pg (26-34); Mean Corpuscular Volume 90.5 fl (80-100); Mean Platelet Volume 10.5 fl (7.4-10.4); Monocytes Absolute Auto 0.7 K/mm3 (0.1-0.6); Monocytes Percent Auto 9.6 % (2.6-8.5); Neutrophils Absolute Auto 3.9 K/mm3 (1.3-6.7); Neutrophils Percent Auto 55.6 % (45.5-73.1); Platelet Count Result 227 k/mm3 (150-375); Red Blood Count 5.27 M/mm3 (4.6-6.20); Red Cell Distribution Width 13.4 % (11.5-14.5); White Blood Count 7.1 K/mm3 (4.5-10.0)
[2021-07-26 08:35] LABS: Creatinine Urine 52.4 mg/dL
[2021-07-26 08:35] LABS: Hemoglobin A1C 8.5 % (<5.7)
[2021-07-26 08:50] LABS: MALB Creatinine Ratio 1033.4 mg/g (0-30); Microalbumin Urine Random 541.5 mg/L (0-16.7)
== END 2021-07-26 07:05 | disposition home or self-care (01) ==
LOC: ANHLAB 07:06
PROVIDERS: PCP Family Medicine; Visit Provider Nurse Practitioner
DX: I10 Essential (primary) hypertension (principal); E11.9 Type 2 diabetes mellitus without complications; Z12.5 Encounter for screening for malignant neoplasm of prostate
CPT/HCPCS: 36415; 80053; 80061; 82043; 83036; 84153; 85025; G0103

== ENCOUNTER 2021-08-02 07:03 | Outpatient (CLI) | payer BC, OTHER, SELFPAY ==
[2021-08-02 10:00] LABS: Alanine Aminotransferase 55 U/L (6-50); Albumin Level 4.3 g/dL (3.5-5.1); Alkaline Phosphatase 124 U/L (38-126); Anion Gap 7 mmol/L (8-16); Aspartate Amino Transferase 54 U/L (17-59); Bilirubin,Total 0.5 mg/dL (0.2-1.3); Blood Urea Nitrogen 13 mg/dL (9-20); Calcium 8.9 mg/dL (8.4-10.2); Carbon Dioxide 27 mmol/L (22-30); Chloride 103 mmol/L (98-107); Cholesterol 211 mg/dL (0-200); Estimated Glomerular Filt Rate > 60; Glucose 221 mg/dL (65-110); LDL Cholesterol Direct < 60 mg/dL; Potassium 4.5 mmol/L (3.4-5.0); Sodium 137 mmol/L (137-145)
[2021-08-02 10:16] LABS: Triglycerides 1792 mg/dL (<150)
== END 2021-08-02 07:04 | disposition home or self-care (01) ==
LOC: ANHLAB 07:06
PROVIDERS: PCP Family Medicine; Visit Provider Nurse Practitioner
DX: I10 Essential (primary) hypertension (principal); E78.5 Hyperlipidemia, unspecified
CPT/HCPCS: 36415; 80053; 80061

== ENCOUNTER 2021-10-11 07:48 | Outpatient (CLI) | payer BC, OTHER, SELFPAY ==
[2021-10-11 08:11] LABS: Cholesterol 182 mg/dL (0-200); HDL Direct 38 mg/dL
[2021-10-11 08:21] LABS: LDL Cholesterol Direct 51 mg/dL
[2021-10-11 08:25] LABS: Triglycerides 766 mg/dL (<150)
== END 2021-10-11 07:49 | disposition home or self-care (01) ==
PROVIDERS: PCP Family Medicine; Visit Provider Internal Medicine Cardiovascular Disease
DX: E78.5 Hyperlipidemia, unspecified (principal)
CPT/HCPCS: 36415; 80061

== ENCOUNTER 2021-11-04 08:28 | Outpatient (CLI) | payer BC, OTHER, SELFPAY ==
--- NOTE | 2021-11-04 08:38 | EST_ITS ---
Patient Info Name: Jaziel Guzman Age: 51 years : 1970 Gender: Male Ht: 73 in Wt: 255 lbs BSA: 2.48 m2 HR: 74 bpm BP: 134 / 85 mmHg Heart Rhythm: Sinus Rhythm Technical Quality: Good Exam Date: 11/04/2021 9:13 AM Exam Location: [facility] Patient Status: Outpatient Admit Date: 11/04/2021 Staff Ordering Physician: Honorio Mcneal DO Fire Alarm Technician: Tana Rod RDCS Attending Provider: HONORIO MCNEAL DO Referring Physician: Cameron COLEMAN; Exam Type: CA stress echo Study Info Indications R06.00 - Dyspnea, unspecified Treadmill exercise stress echocardiogram is performed. Summary 1. 1. Negative submaximal Walter exercise stress test for ischemic ST changes by ECG criteria, achieving only 68% MPHR for age group due to beta aneesh. 2. 2. Reduced functional capacity, achieving 7 METs of workload due to beta blockade. 3. 3. Blunted HR response to exercise. 4. 4. Appropriate HR recovery at 1 minute post exercise. 5. 5. Negative stress echocardiogram for ischemia by wall motion analysis. 6. 6. Patient informed of the above results. Stress Echo Findings Left Ventricle Appropriate increase in LV endocardial thickening with systole. Appropriate augmentation of contractility with systole. No wall motion abnormality. Left Ventricle Normal LV systolic function, no wall motion abnormality. Protocol: Walter Stress ECG Details Stage: REST Duration (min): 0 min : 48 sec Speed (mph): 0.0 Grade (%): 0 HR (bpm): 75 SBP (mmHg): --- DBP (mmHg): --- METS: --- Stage: REST Duration (min): 15 min : 13 sec Speed (mph): 0.0 Grade (%): 0 HR (bpm): 73 SBP (mmHg): --- DBP (mmHg): --- METS: --- Stage: STAGE 1 Duration (min): 1 min : 0 sec Speed (mph): 1.7 Grade (%): 10 HR (bpm): 90 SBP (mmHg): --- DBP (mmHg): --- METS: --- Stage: STAGE 1 Duration (min): 2 min : 0 sec Speed (mph): 1.7 Grade (%): 10 HR (bpm): 100 SBP (mmHg): --- DBP (mmHg): --- METS: --- Stage: STAGE 1 Duration (min): 3 min : 0 sec Speed (mph): 1.7 Grade (%): 10 HR (bpm): 108 SBP (mmHg): 154 DBP (mmHg): 66 METS: --- Stage: STAGE 2 Duration (min): 1 min : 0 sec Speed (mph): 2.5 Grade (%): 12 HR (bpm): 115 SBP (mmHg): 154 DBP (mmHg): 66 METS: --- Stage: STAGE 2 Duration (min): 2 min : 0 sec Speed (mph): 2.5 Grade (%): 12 HR (bpm): 115 SBP (mmHg): 145 DBP (mmHg): 99 METS: --- Stage: STAGE 2 Duration (min): 2 min : 29 sec Speed (mph): 0.0 Grade (%): 0 HR (bpm): 114 SBP (mmHg): 145 DBP (mmHg): 99 METS: --- Stage: RECOVERY Duration (min): 0 min : 31 sec Speed (mph): 0.0 Grade (%): 0 HR (bpm): 103 SBP (mmHg): 145 DBP (mmHg): 99 METS: --- Stage: RECOVERY Duration (min): 1 min : 31 sec Speed (mph): 0.0 Grade (%): 0 HR (bpm): 95 SBP (mmHg): 142 DBP (mmHg): 90 METS: ---
== END 2021-11-04 08:29 | disposition home or self-care (01) ==
LOC: ANHCARD 08:30
PROVIDERS: PCP Family Medicine; Visit Provider Internal Medicine Cardiovascular Disease
DX: R06.09 Other forms of dyspnea (principal)
CPT/HCPCS: 93351

== ENCOUNTER 2022-02-14 07:10 | Outpatient (CLI) | payer BC, OTHER, SELFPAY ==
[2022-02-14 08:09] LABS: Basophils Absolute Auto 0.1 K/mm3 (0.0-0.1); Eosinophils Absolute Auto 0.1 K/mm3 (0-0.3); Eosinophils Percent Auto 1.4 % (0-4.4); Hematocrit 47.2 % (42.0-52.0); Hemoglobin 15.9 g/dL (14.0-18.0); Immature Granulocyte Absolute 0.16 K/mm3 (0.00-0.031); Immature Granulocyte Percent A 2.1 % (0-0.5); Lymphocytes Absolute Auto 2.46 K/mm3 (0.9-3.2); Lymphocytes Percent Auto 32.2 % (18.3-44.2); Mean Corpuscular HGB Conc 33.7 g/dl (32-36); Mean Corpuscular Hemoglobin 30.8 pg (26-34); Mean Corpuscular Volume 91.3 fl (80-100); Mean Platelet Volume 11.1 fl (7.4-10.4); Monocytes Absolute Auto 0.5 K/mm3 (0.1-0.6); Monocytes Percent Auto 6.3 % (2.6-8.5); Neutrophils Absolute Auto 4.4 K/mm3 (1.3-6.7); Platelet Count Result 253 k/mm3 (150-375); Red Blood Count 5.17 M/mm3 (4.6-6.20); Red Cell Distribution Width 12.8 % (11.5-14.5); White Blood Count 7.7 K/mm3 (4.5-10.0)
[2022-02-14 08:19] LABS: Alanine Aminotransferase 57 U/L (6-50); Albumin Level 4.3 g/dL (3.5-5.1); Alkaline Phosphatase 146 U/L (38-126); Anion Gap 10 mmol/L (8-16); Aspartate Amino Transferase 46 U/L (17-59); Bilirubin,Total 0.5 mg/dL (0.2-1.3); Blood Urea Nitrogen 16 mg/dL (9-20); Calcium 8.9 mg/dL (8.4-10.2); Carbon Dioxide 24 mmol/L (22-30); Chloride 104 mmol/L (98-107); Cholesterol 200 mg/dL (0-200); Estimated Glomerular Filt Rate > 60; Glucose 211 mg/dL (65-110); HDL Direct 32 mg/dL; Magnesium 1.6 mg/dL (1.6-2.3); Potassium 4.1 mmol/L (3.4-5.0); Sodium 138 mmol/L (137-145)
[2022-02-14 09:03] LABS: Vitamin D 25 Hydroxy 23.6 ng/mL
[2022-02-14 09:53] LABS: Triglycerides 2048 mg/dL (<150)
[2022-02-14 10:22] LABS: LDL Cholesterol Direct < 30 mg/dL
[2022-02-14 10:44] LABS: Hemoglobin A1C 9.6 % (<5.7)
== END 2022-02-14 07:11 | disposition home or self-care (01) ==
PROVIDERS: PCP Family Medicine; Visit Provider Internal Medicine Cardiovascular Disease
DX: E11.9 Type 2 diabetes mellitus without complications (principal); E78.5 Hyperlipidemia, unspecified; E55.9 Vitamin D deficiency, unspecified; E53.8 Deficiency of other specified B group vitamins; I10 Essential (primary) hypertension; R25.2 Cramp and spasm
CPT/HCPCS: 36415; 80053; 80061; 82306; 82607; 83036; 83735; 85025

== ENCOUNTER 2022-05-02 06:42 | Outpatient (CLI) | payer BC, OTHER, SELFPAY ==
[2022-05-02 08:06] LABS: Alanine Aminotransferase 48 U/L (6-50); Albumin Level 4.5 g/dL (3.5-5.1); Alkaline Phosphatase 73 U/L (38-126); Anion Gap 10 mmol/L (8-16); Aspartate Amino Transferase 37 U/L (17-59); Bilirubin,Total 0.7 mg/dL (0.2-1.3); Blood Urea Nitrogen 21 mg/dL (9-20); Calcium 8.9 mg/dL (8.4-10.2); Carbon Dioxide 21 mmol/L (22-30); Chloride 108 mmol/L (98-107); Cholesterol 175 mg/dL (0-200); Estimated Glomerular Filt Rate > 60; Glucose 113 mg/dL (65-110); Potassium 4.5 mmol/L (3.4-5.0); Sodium 139 mmol/L (137-145); Triglycerides 660 mg/dL (<150)
[2022-05-02 08:07] LABS: LDL Cholesterol Direct 54 mg/dL
== END 2022-05-02 06:43 | disposition home or self-care (01) ==
LOC: ANHLAB 06:43
PROVIDERS: PCP Family Medicine; Visit Provider Internal Medicine Cardiovascular Disease
DX: E78.5 Hyperlipidemia, unspecified (principal)
CPT/HCPCS: 36415; 80053; 80061

== ENCOUNTER 2022-08-01 06:34 | Outpatient (CLI) | payer BC, SELFPAY ==
[2022-08-01 07:40] LABS: Alanine Aminotransferase 39 U/L (6-50); Albumin Level 4.4 g/dL (3.5-5.1); Alkaline Phosphatase 105 U/L (38-126); Anion Gap 8 mmol/L (8-16); Aspartate Amino Transferase 31 U/L (17-59); Bilirubin,Total 0.3 mg/dL (0.2-1.3); Blood Urea Nitrogen 23 mg/dL (9-20); Calcium 8.6 mg/dL (8.4-10.2); Carbon Dioxide 23 mmol/L (22-30); Chloride 110 mmol/L (98-107); Cholesterol 179 mg/dL (0-200); Estimated Glomerular Filt Rate > 60; Glucose 129 mg/dL (65-110); HDL Direct 32 mg/dL; Potassium 4.2 mmol/L (3.4-5.0); Sodium 141 mmol/L (137-145)
[2022-08-01 07:46] LABS: LDL Cholesterol Direct 55 mg/dL
[2022-08-01 07:48] LABS: Hemoglobin A1C 6.2 % (<5.7)
[2022-08-01 10:24] LABS: Triglycerides 1118 mg/dL (<150)
== END 2022-08-01 06:35 | disposition home or self-care (01) ==
LOC: ANHLAB 06:36
PROVIDERS: Nurse Practitioner Family; PCP Family Medicine; Visit Provider Internal Medicine Cardiovascular Disease
DX: R68.82 Decreased libido (principal); E11.9 Type 2 diabetes mellitus without complications; E78.5 Hyperlipidemia, unspecified
CPT/HCPCS: 36415; 80053; 80061; 83036

== ENCOUNTER 2022-11-04 06:55 | Outpatient (CLI) | payer BC, SELFPAY ==
[2022-11-04 07:47] LABS: Alanine Aminotransferase 38 U/L (6-50); Albumin Level 4.3 g/dL (3.5-5.1); Alkaline Phosphatase 90 U/L (38-126); Anion Gap 9 mmol/L (8-16); Aspartate Amino Transferase 34 U/L (17-59); Bilirubin,Total 0.6 mg/dL (0.2-1.3); Blood Urea Nitrogen 27 mg/dL (9-20); Calcium 9.3 mg/dL (8.4-10.2); Carbon Dioxide 25 mmol/L (22-30); Chloride 104 mmol/L (98-107); Cholesterol 175 mg/dL (0-200); Estimated Glomerular Filt Rate > 60; Glucose 127 mg/dL (65-110); HDL Direct 31 mg/dL; Potassium 4.3 mmol/L (3.4-5.0); Sodium 138 mmol/L (137-145); Triglycerides 524 mg/dL (<150)
[2022-11-04 07:58] LABS: LDL Cholesterol Direct 81 mg/dL
== END 2022-11-04 06:56 | disposition home or self-care (01) ==
LOC: ANHLAB 06:56
PROVIDERS: PCP Family Medicine; Visit Provider Internal Medicine Cardiovascular Disease
DX: E78.5 Hyperlipidemia, unspecified (principal)
CPT/HCPCS: 36415; 80053; 80061

== ENCOUNTER 2023-01-30 06:35 | Outpatient (CLI) | payer BC, OTHER, SELFPAY ==
[2023-01-30 07:18] LABS: Basophils Percent Auto 0.7 % (0.2-1.2); Eosinophils Absolute Auto 0.1 K/mm3 (0-0.3); Hematocrit 51.2 % (42.0-52.0); Hemoglobin 16.4 g/dL (14.0-18.0); Immature Granulocyte Absolute 0.03 K/mm3 (0.00-0.031); Immature Granulocyte Percent A 0.5 % (0-0.5); Lymphocytes Absolute Auto 1.64 K/mm3 (0.9-3.2); Mean Corpuscular Hemoglobin 29.1 pg (26-34); Mean Corpuscular Volume 90.8 fl (80-100); Mean Platelet Volume 10.4 fl (7.4-10.4); Monocytes Absolute Auto 0.5 K/mm3 (0.1-0.6); Neutrophils Absolute Auto 3.2 K/mm3 (1.3-6.7); Neutrophils Percent Auto 57.8 % (45.5-73.1); Platelet Count Result 197 k/mm3 (150-375); Red Blood Count 5.64 M/mm3 (4.6-6.20); Red Cell Distribution Width 13.2 % (11.5-14.5); White Blood Count 5.5 K/mm3 (4.5-10.0)
[2023-01-30 07:30] LABS: Alanine Aminotransferase 39 U/L (6-50); Albumin Level 4.5 g/dL (3.5-5.1); Alkaline Phosphatase 69 U/L (38-126); Anion Gap 7 mmol/L (8-16); Aspartate Amino Transferase 37 U/L (17-59); Bilirubin,Total 0.6 mg/dL (0.2-1.3); Blood Urea Nitrogen 22 mg/dL (9-20); Calcium 9.4 mg/dL (8.4-10.2); Carbon Dioxide 28 mmol/L (22-30); Chloride 104 mmol/L (98-107); Cholesterol 161 mg/dL (0-200); Estimated Glomerular Filt Rate > 60; Glucose 115 mg/dL (65-110); HDL Direct 32 mg/dL; Potassium 4.3 mmol/L (3.4-5.0); Sodium 139 mmol/L (137-145); Triglycerides 357 mg/dL (<150)
[2023-01-30 07:41] LABS: LDL Cholesterol Direct 80 mg/dL
[2023-01-30 08:00] LABS: Prostate Specific Antigen 0.3 ng/mL (< OR = 4.0)
[2023-01-30 09:10] LABS: Hemoglobin A1C 6.9 % (<5.7)
[2023-02-03 14:45] LABS: Testosterone Free 69.4 pg/mL (35.0-155.0); Testosterone Total 406 ng/dL (250-1100)
== END 2023-01-30 06:36 | disposition home or self-care (01) ==
PROVIDERS: PCP Family Medicine; Visit Provider Nurse Practitioner Family
DX: Z00.00 Encounter for general adult medical examination without abnormal findings (principal); E78.5 Hyperlipidemia, unspecified; I10 Essential (primary) hypertension; E11.9 Type 2 diabetes mellitus without complications; G47.10 Hypersomnia, unspecified; N52.9 Male erectile dysfunction, unspecified; R68.82 Decreased libido; Z12.5 Encounter for screening for malignant neoplasm of prostate; Z13.29 Encounter for screening for other suspected endocrine disorder
CPT/HCPCS: 36415; 80053; 80061; 83036; 84153; 84402; 84403; 84443; 85025; G0103

== ENCOUNTER 2023-05-06 17:13 | Outpatient (CLI) | payer BC, OTHER, SELFPAY ==
--- NOTE | ~2023-05-06 | CT_ITS ---
EXAMINATION: CT brain wo con INDICATION: Headache COMPARISON: 05/27/2018 TECHNIQUE: Standard unenhanced head CT. The dose-length product (DLP) was 756.67 mGy-cm. The mA was a djusted according to patient size. Iterative reconstruction technique was employed. FINDINGS: No intracranial hemorrhage, acute infarction, or abnormal mass lesion. The ventricles are n ormal. No abnormal mass effect or midline shift. The barragan-white matter differentiation is normal. The basal cisterns are patent. The orbits are normal. The paranasal sinuses, mastoids and calvarium are normal. IMPRESSION: 1. No acute intracranial abnormality. Reviewed, dictated and finalized at location F.
== END 2023-05-06 17:14 | disposition home or self-care (01) ==
LOC: ANHIMG 17:14
PROVIDERS: PCP Family Medicine; Visit Provider Nurse Practitioner Family
DX: R51.9 Headache, unspecified (principal)
CPT/HCPCS: 70450

== ENCOUNTER 2023-05-08 06:44 | Outpatient (CLI) | payer BC, OTHER, SELFPAY ==
[2023-05-08 08:09] LABS: Alanine Aminotransferase 39 U/L (6-50); Albumin Level 4.7 g/dL (3.5-5.1); Alkaline Phosphatase 100 U/L (38-126); Anion Gap 8 mmol/L (8-16); Aspartate Amino Transferase 36 U/L (17-59); Bilirubin,Total 0.8 mg/dL (0.2-1.3); Blood Urea Nitrogen 26 mg/dL (9-20); Calcium 9.6 mg/dL (8.4-10.2); Carbon Dioxide 25 mmol/L (22-30); Chloride 105 mmol/L (98-107); Cholesterol 250 mg/dL (0-200); Estimated Glomerular Filt Rate > 60; Glucose 176 mg/dL (65-110); Potassium 4.5 mmol/L (3.4-5.0); Sodium 138 mmol/L (137-145)
[2023-05-08 11:06] LABS: LDL Cholesterol Direct 107 mg/dL; Triglycerides 784 mg/dL (<150)
[2023-05-08 15:33] LABS: Hemoglobin A1C 6.6 % (<5.7)
== END 2023-05-08 06:45 | disposition home or self-care (01) ==
PROVIDERS: PCP Family Medicine; Visit Provider Internal Medicine Cardiovascular Disease
DX: E78.5 Hyperlipidemia, unspecified (principal)
CPT/HCPCS: 36415; 80053; 80061; 83036

== ENCOUNTER 2023-10-12 06:41 | Outpatient (CLI) | payer BC, SELFPAY ==
[2023-10-12 07:07] LABS: Hematocrit 48.8 % (42.0-52.0); Hemoglobin 15.8 g/dL (14.0-18.0); Mean Corpuscular HGB Conc 32.4 g/dl (32-36); Mean Corpuscular Hemoglobin 29.7 pg (26-34); Mean Corpuscular Volume 91.7 fl (80-100); Platelet Count Result 210 k/mm3 (150-375); Red Blood Count 5.32 M/mm3 (4.6-6.20); Red Cell Distribution Width 13.2 % (11.5-14.5); White Blood Count 6.5 K/mm3 (4.5-10.0)
[2023-10-12 07:35] LABS: Alanine Aminotransferase 39 U/L (6-50); Albumin Level 4.3 g/dL (3.5-5.1); Alkaline Phosphatase 77 U/L (38-126); Anion Gap 10 mmol/L (4-12); Aspartate Amino Transferase 35 U/L (17-59); Bilirubin,Total 0.5 mg/dL (0.2-1.3); Blood Urea Nitrogen 19 mg/dL (9-20); Calcium 8.8 mg/dL (8.4-10.2); Carbon Dioxide 27 mmol/L (22-30); Chloride 101 mmol/L (98-107); Cholesterol 167 mg/dL (0-200); Estimated Glomerular Filt Rate > 60; Glucose 109 mg/dL (65-110); HDL Direct 36 mg/dL; Potassium 4.2 mmol/L (3.4-5.0); Sodium 138 mmol/L (137-145); Triglycerides 415 mg/dL (<150)
[2023-10-12 07:46] LABS: LDL Cholesterol Direct 81 mg/dL
[2023-10-12 10:01] LABS: Hemoglobin A1C 6.8 % (<5.7)
== END 2023-10-12 06:42 | disposition home or self-care (01) ==
PROVIDERS: PCP Family Medicine; Visit Provider Nurse Practitioner Family
DX: Z00.00 Encounter for general adult medical examination without abnormal findings (principal); I10 Essential (primary) hypertension; E78.5 Hyperlipidemia, unspecified; E11.9 Type 2 diabetes mellitus without complications
CPT/HCPCS: 36415; 80053; 80061; 83036; 84443; 85025

== ENCOUNTER 2024-04-15 07:59 | Outpatient (CLI) | payer BC, SELFPAY ==
[2024-04-15 08:47] LABS: Basophils Absolute Auto 0.1 K/mm3 (0.0-0.1); Basophils Percent Auto 1.6 % (0.2-1.2); Eosinophils Absolute Auto 0.1 K/mm3 (0-0.3); Eosinophils Percent Auto 2.3 % (0-4.4); Hematocrit 47.2 % (42.0-52.0); Hemoglobin 15.4 g/dL (14.0-18.0); Immature Granulocyte Absolute 0.14 K/mm3 (0.00-0.031); Immature Granulocyte Percent A 2.5 % (0-0.5); Lymphocytes Absolute Auto 1.76 K/mm3 (0.9-3.2); Lymphocytes Percent Auto 31.6 % (18.3-44.2); Mean Corpuscular HGB Conc 32.6 g/dl (32-36); Mean Corpuscular Hemoglobin 29.4 pg (26-34); Mean Corpuscular Volume 90.2 fl (80-100); Mean Platelet Volume 10.1 fl (7.4-10.4); Monocytes Absolute Auto 0.4 K/mm3 (0.1-0.6); Monocytes Percent Auto 7.7 % (2.6-8.5); Neutrophils Percent Auto 54.3 % (45.5-73.1); Platelet Count Result 222 k/mm3 (150-375); Red Blood Count 5.23 M/mm3 (4.6-6.20); Red Cell Distribution Width 13.2 % (11.5-14.5); White Blood Count 5.6 K/mm3 (4.5-10.0)
[2024-04-15 08:52] LABS: Alanine Aminotransferase 33 U/L (6-50); Albumin Level 4.1 g/dL (3.5-5.1); Alkaline Phosphatase 82 U/L (38-126); Anion Gap 11 mmol/L (4-12); Aspartate Amino Transferase 32 U/L (17-59); Bilirubin,Total 0.5 mg/dL (0.2-1.3); Blood Urea Nitrogen 26 mg/dL (9-20); Calcium 9.3 mg/dL (8.4-10.2); Carbon Dioxide 24 mmol/L (22-30); Chloride 103 mmol/L (98-107); Cholesterol 189 mg/dL (0-200); Estimated Glomerular Filt Rate > 60; Glucose 127 mg/dL (65-110); Potassium 4.6 mmol/L (3.4-5.0); Sodium 138 mmol/L (137-145)
[2024-04-15 09:02] LABS: LDL Cholesterol Direct 56 mg/dL
[2024-04-15 09:04] LABS: Triglycerides 937 mg/dL (<150)
[2024-04-15 09:20] LABS: Prostate Specific Antigen 0.2 ng/mL (< OR = 4.0)
[2024-04-15 09:23] LABS: Vitamin D 25 Hydroxy 15.3 ng/mL
[2024-04-15 09:29] LABS: Creatinine Urine 54.4 mg/dL
[2024-04-15 09:43] LABS: Hemoglobin A1C 7.2 % (<5.7)
[2024-04-15 10:20] LABS: MALB Creatinine Ratio 1189.3 mg/g (0-30)
== END 2024-04-15 08:00 | disposition home or self-care (01) ==
LOC: ANHLAB 08:00
PROVIDERS: PCP Family Medicine; Visit Provider Nurse Practitioner Family
DX: E78.5 Hyperlipidemia, unspecified (principal); I10 Essential (primary) hypertension; E11.9 Type 2 diabetes mellitus without complications; E55.9 Vitamin D deficiency, unspecified; Z12.5 Encounter for screening for malignant neoplasm of prostate
CPT/HCPCS: 36415; 80053; 80061; 82043; 82306; 83036; 84153; 85025; G0103

== ENCOUNTER 2024-10-14 07:26 | Outpatient (CLI) | payer BC, SELFPAY ==
[2024-10-14 08:17] LABS: Hematocrit 48.0 % (42.0-52.0); Hemoglobin 15.7 g/dL (14.0-18.0); Immature Granulocyte Percent A 0.9 % (0-0.5); Lymphocytes Absolute Auto 1.79 K/mm3 (0.9-3.2); Mean Corpuscular HGB Conc 32.7 g/dl (32-36); Mean Corpuscular Hemoglobin 29.6 pg (26-34); Mean Corpuscular Volume 90.4 fl (80-100); Nucleated Red Blood Cells Absolute Auto 0.000 K/mm3 (0.0-0.012); Nucleated Red Blood Cells Perc 0.0 % (0.0-0.2); Platelet Count Result 194 k/mm3 (150-375); Red Blood Count 5.31 M/mm3 (4.6-6.20); White Blood Count 5.8 K/mm3 (4.5-10.0)
[2024-10-14 08:50] LABS: Hemoglobin A1C 7.5 % (<5.7)
[2024-10-14 09:24] LABS: Alanine Aminotransferase 46 U/L (6-50); Albumin Level 4.1 g/dL (3.5-5.1); Alkaline Phosphatase 69 U/L (38-126); Anion Gap 10 mmol/L (4-12); Aspartate Amino Transferase 40 U/L (17-59); Bilirubin,Total 0.5 mg/dL (0.2-1.3); Blood Urea Nitrogen 20 mg/dL (9-20); Calcium 8.6 mg/dL (8.4-10.2); Carbon Dioxide 25 mmol/L (22-30); Chloride 101 mmol/L (98-107); Cholesterol 232 mg/dL (0-200); Estimated Glomerular Filt Rate > 60; Glucose 129 mg/dL (65-110); Potassium 4.0 mmol/L (3.4-5.0); Sodium 136 mmol/L (137-145); Total Protein 7.4 g/dL (6.3-8.2)
[2024-10-14 11:40] LABS: Triglycerides 1344 mg/dL (<150)
== END 2024-10-14 07:27 | disposition home or self-care (01) ==
LOC: ANHLAB 07:28
PROVIDERS: PCP Nurse Practitioner Family; Visit Provider Nurse Practitioner Family
DX: E55.9 Vitamin D deficiency, unspecified (principal); E11.9 Type 2 diabetes mellitus without complications; I10 Essential (primary) hypertension; E78.5 Hyperlipidemia, unspecified
CPT/HCPCS: 36415; 80053; 80061; 82306; 83036; 85025